=== PATIENT | female | born 1970 | race Caucasian/White ===

== ENCOUNTER 2024-08-18 08:19 | Inpatient (IN) | payer MEDICAID, SELFPAY ==
[2024-08-18] VITALS (8 sets, daily range): BP systolic 100–118; BP diastolic 52–83; PULSE 70–104; RESP 16–20; TEMP 36.1–39.3; O2SAT 84–100; BMI 22.6
--- NOTE | 2024-08-18 08:46 | XR_ITS ---
Examination: AP chest single view Technique one AP portable semiupright chest single view Comparison 10/31/2018 Indications: Clinical diagnosis aspiration, shortness of breath congestion Findings: Enlarged cardiac contour with prominent vascular congestion Pneumonia right base with small right pleural effusion Ectatic enlarged thoracic aorta Impression: Mild heart failure Right base pneumonia, consider aspiration pneumonia
--- NOTE | 2024-08-18 08:47 | EDRME_ITS ---
Rapid Medical Screening Exam RME Arrival date/time: 08/18/24 08:19 This is a 53-year-old female that lives at a nursing home. Per care provider patient was eating and she had a choking episode. Patient has had aspiration in the past. provider at the nursing home did call primary provider and they did order Zithromax just in case. They did not give the medication yesterday because she was not really wanting to eat. This morning patient had low saturations and they thought it was because her temperature was not warm enough for the oximetry probe. They gave her a warm bath and the oxygenation did not come up so they brought her to the emergency room. Upon arrival patient is febrile with O2 sats in the 84%. Patient has a history of severe mental retardation, dependent edema, low blood pressure seasonal allergies and chronic constipation. I have greeted and performed a focused initial assessment of this patient. Initial appropriate labs ordered at this time. A comprehensive ED assessment and evaluation of the patient and analysis of all test and completion of medical decision making process will be conducted by additional ED provider. Chief Complaint: Weakness Time Seen by Provider: 08/18/24 08:23 Vital signs: Vital Signs Temperature 102.8 F H 08/18/24 08:35 Pulse Rate 104 H 08/18/24 08:35 Respiratory Rate 18 08/18/24 08:35 Blood Pressure 100/66 08/18/24 08:35 Pulse Oximetry (%) 84 L 08/18/24 08:35 Oxygen Delivery Method Room Air 08/18/24 08:35
[2024-08-18 09:46] LABS: Basophils # (Auto) 0.0 Thou/mm3 (0.0-0.2); Basophils % (Auto) 0 % (0-2.5); Eosinophils # (Auto) 0.1 Thou/mm3 (0.0-0.5); Eosinophils % (Auto) 0 % (0-10); Hematocrit 36.9 % (36.0-46.0); Hemoglobin 12.2 g/dL (12.0-16.0); Immature Granulocytes Auto 0.04 Thou/mm3 (0.00-0.00); Lymphocytes # (Auto) 0.4 Thou/mm3 (1.0-4.8); Lymphocytes % (Auto) 3 % (10-50); Mean Corpuscular HGB Conc 33.1 g/dl (31.0-37.0); Mean Corpuscular Hemoglobin 29.6 pg (25.0-35.0); Mean Corpuscular Volume 90 fL (80-100); Monocytes # (Auto) 0.7 Thou/mm3 (0.0-0.8); Monocytes % (Auto) 5 % (0-12); Neutrophils # (Auto) 12.2 Thou/mm3 (1.8-7.7); Neutrophils % (Auto) 91 % (37-80); Nucleated Red Blood Cell # 0.00 Thou/mm3 (0.00-0.00); Nucleated Red Blood Cell % 0 /100 WBC (0); Platelet Count 302 Thou/mm3 (140-440); RDW Standard Deviation 47.8 fL (36.4-46.3); Red Blood Count 4.12 Miln/mm3 (4.00-5.20); White Blood Count 13.4 Thou/mm3 (3.6-11.0)
[2024-08-18 09:48] LABS: Lactate (Lactic Acid) 1.9 mMol/L (0.4-2.0)
[2024-08-18] MEDS: ACETAMINOPHEN SUPP 650 MG SUPP PR (10:19)
[2024-08-18 10:24] LABS: Alanine Aminotransferase 10 U/L (10-49); Albumin, Serum 4.2 gm/dL (3.5-5.0); Albumin/Globulin Ratio 1.6 (1.2-2.2); Alkaline Phosphatase 80 U/L (46-116); Anion Gap 11 (7-16); Aspartate Amino Transferase 16 U/L (0-34); BUN/Creatinine Ratio 19 Ratio (12-20); Bilirubin,Total 0.9 mg/dL (0.3-1.2); Blood Urea Nitrogen 25 mg/dL (9-23); Calcium 9.6 mg/dL (8.3-10.6); Calcium (Corrected) 9.6 mg/dL (8.5-10.1); Carbon Dioxide 27.3 mMol/L (20.0-31.0); Chloride 103 mMol/L (98-107); Creatinine (Component) 1.3 mg/dL (0.6-1.3); Estimated Creatinine Clearance 46.3 mL/min (>60); Globulin 2.7 gm/dL (2.3-3.5); Glucose 109 mg/dL (74-106); Osmolality,Calculated 286 (275-295); Potassium 3.7 mMol/L (3.4-5.1); Procalcitonin 0.73 ng/ml (0.0-0.49); Sodium 141 mMol/L (136-145); Total Protein 6.9 gm/dL (5.7-8.2); eGFR 49 See Note
[2024-08-18] MEDS: PIPER/TAZO 3.375 GM PREMIX 3.375 GM/50 ML BAG IV (11:28)
[2024-08-18] MEDS: SODIUM CHLORIDE 0.9% 500 ML 500 ML 999 ML IV (11:28)
[2024-08-18] MEDS: DOXYCYCLINE INJ 100 MG in SODIUM CHLORIDE 0.9% (POP) 100 ML IV (11:29)
--- NOTE | 2024-08-18 12:04 | EDNOTE_ITS ---
ED SOB =RME/HPI General Chief Complaint: Weakness Stated Complaint: SpO2 81%, lethargic Time Seen by Provider: 08/18/24 08:23 Arrival date/time: 08/18/24 08:19 Limitations: language barrier (nonverbal, baseline) RME / HPI RME / HPI Narrative: 08/18/24 08:19 This is a 53-year-old female that lives at a custodial. Per care provider patient was eating and she had a choking episode. Patient has had aspiration in the past. provider at the custodial did call primary provider and they did order Zithromax just in case. They did not give the medication yesterday because she was not really wanting to eat. This morning patient had low saturations and they thought it was because her temperature was not warm enough for the oximetry probe. They gave her a warm bath and the oxygenation did not come up so they brought her to the emergency room. Upon arrival patient is febrile with O2 sats in the 84%. Patient has a history of severe mental retardation, dependent edema, low blood pressure seasonal allergies and chronic constipation. I have greeted and performed a focused initial assessment of this patient. Initial appropriate labs ordered at this time. A comprehensive ED assessment and evaluation of the patient and analysis of all test and completion of medical decision making process will be conducted by additional ED provider. DR. RODNEY MAIN ED EVALUATION: 53 year old female with past medical history significant for developmental delay, intellectual disability, and nonverbal at baseline presents to the Emergency Department brought in by agile tester with complaints of hypoxia/ shortness of breath and generalized weakness. No history from patient. Mariza Espinal, agile tester, states that the patient's O2 sat this morning was 81%. Patient was on a Z pack by her PCP yesterday. Patient has been lethargic/ generally weak and will not eat and will not take her medication. No further complaints at this time. Related Data Home Medications ?Medication ?Instructions ?Recorded ?Confirmed docusate sodium 250 mg capsule 250 mg PO BID PRN CONST IPATION #0 03/19/15 10/29/18 (DOK) caps lactulose 20 gram/30 mL oral 20 gm PO BID ##0 03/19/15 10/29/18 solution loratadine 10 mg tablet (Claritin) 10 mg PO QDAY #0 ta bs 03/19/15 10/29/18 acetaminophen 325 mg tablet 650 mg PO Q4H PRN Pain 09/0110/29/18 (Tylenol) bisacodyl 10 mg rectal suppository 10 mg NM QDAY PRN C onstipation 03/24/17 10/29/18 magnesium hydroxide 400 mg/5 mL 30 ml PO DAILY constip ation 03/24/17 10/29/18 oral suspension (Milk of Magnesia) ferrous sulfate 325 mg (65 mg 325 mg PO DAILY 03/30/17 10/29/18 iron) tablet,delayed release midodrine 5 mg tablet 10 mg PO BID 10/29/18 vit no.95-ferrous 1 tab PO QDAY 10/29/1810/16 fumarate 28 mg-folic acid 800 mcg tablet () Previous Rx's ?Medication ?Instructions ?Recorded amoxicillin 875 mg-potassium 1 tab PO Q12H #14 tabs clavulanate 125 mg tablet (Augmentin) Allergies Allergy/AdvReac Type Severity Reaction Status Date / Time No Known Allergies Allergy Verified 08/18/24 08:25 Review of Systems Review of Systems Systems Reviewed: All systems reviewed, normal except as documented Past Medical History Past Medical History NEUROLOGIC: Positive Neurological Disorders and Patel's Palsy; Negative Seizures or Epilepsy CARDIAC: Positive Congestive Heart Failure and Hypotension; Negative Cardiac Disorders RESPIRATORY: Positive Asthma, Bronchitis, Pneumonia, Cough and Sputum Production; Negative Chronic Obstructive Pulmonary Disease (COPD) GASTROINTESTINAL: Positive Gastrointestinal Disorders GENITOURINARY: Positive Genitourinary Disorders; Negative Renal Disease or Dialysis MUSCULOSKELETAL: Positive Musculoskeletal Disorders ENDOCRINE: Negative Diabetes Mellitus Type 1 or Diabetes Mellitus Type 2 HEMATOLOGIC: Positive Anemia; Negative Sickle Cell Disease Social History SMOKING STATUS: Never smoker SECOND HAND EXPOSURE: No SUBSTANCE USE: does not use ALCOHOL: Never ED Exam General Limitations: Present language barrier (nonverbal, baseline) General appearance: Present alert (at her baseline) and in no apparent distress Head Head exam: Present atraumatic, normocephalic and normal inspection Eye Eye exam: Present normal appearance, PERRL and EOMI ENT ENT exam: Present normal exam, normal oropharynx and mucous membranes moist Neck Neck exam: Present normal inspection, full ROM and trachea midline Chest Chest inspection: Present normal inspection and symmetric chest wall rise Respiratory Respiratory exam: Present normal lung sounds bilaterally Cardiovascular Cardiovascular exam: Present regular rate, normal rhythm and normal heart sounds Abdominal Exam Abdominal exam: Present soft and normal bowel sounds Extremities Exam Extremities exam: Present full ROM and other (all contracted, mildly) Expanded Lower Extremity Exam Foot/toe exam: Present swelling (left foot edema, chronic) Back Exam Back exam: Present normal inspection and full ROM Neurological Exam Neurological exam: Present alert (at baseline) Psychiatric Psychiatric exam: Present normal affect and normal mood Skin Skin exam: Present warm, dry, intact and normal color Course Quality Measures none Orders Category Date Time Status COVID-19 Screening Questionnaire NOW Care 08/18/24 12:37 Active Decision to Admit X1 Care 08/18/24 12:37 Active Insert [Insert IV] NOW Care 08/18/24 09:54 Active XR chest 1V Stat Exams 08/18/24 08:46 Completed Blood Culture (Lab) Stat Lab 08/18/24 09:37 Received CBC Stat Lab 08/18/24 09:37 Completed Comprehensive Metabolic Panel Stat Lab 08/18/24 09:37 Completed Lactate (Lactic Acid) Stat Lab 08/18/24 09:37 Completed Procalcitonin Stat Lab 08/18/24 09:37 Completed Urinalysis, C/S if Indicated Stat Lab 08/18/24 08:46 Ordered ALBUTEROL RT 3ml [Proventil Rt 3ml] Med 08/18/24 09:54 Discontinued 5 mg INH X1 ONE Acetaminophen Supp [Tylenol Supp] Med 08/18/24 08:50 Discontinued 650 mg NM X1 ONE Doxycycline Inj [Vibramycin Inj] 100 mg Med 08/18/24 09:54 Discontinued Sodium Chloride 0.9% (Pop) [NS 0.9% mini bag] 100 ml IV X1 Piper/Tazo 3.375 gm Premix [Zosyn] Med 08/18/24 09:55 Discontinued 3.375 gm in 50 ml IV X1 Sodium Chloride 0.9% 500 ml [Ns] 500 ml Med 08/18/24 09:54 Discontinued IV 999 mls/hr Vital Signs Vital signs: Vital Signs Temperature 102.8 F H 08/18/24 08:35 Pulse Rate 104 H 08/18/24 08:35 Respiratory Rate 18 08/18/24 08:35 Blood Pressure 100/66 08/18/24 08:35 Pulse Oximetry (%) 84 L 08/18/24 08:35 Oxygen Delivery Method Room Air 08/18/24 08:35 Shortness of Breath / Dyspnea MDM Narrative MDM Narrative:: I, Cheryle Shah, eder scribing for and in the presence of Dr. Rodney. Patient data External records reviewed:: [facility] previous records Clinical information provided by:: agile tester Social determinants that could affect healthcare access:: none Patient has the following chronic illnesses:: developmental delay, intellectual disability, and nonverbal at baseline How is presenting disease/condition affected by chronic disease/condition?: uneffected by Evaluation data The following diagnostics were reviewed and interpreted by me:: lab results and radiology exam(s) Lab and/or radiology exams considered but not ordered:: none Interpretation Summary: Procedure(s): XR chest 1V Accession Number(s): [id number] cc: Carlo Glass MD; Apurva Sy NP~ Examination: AP chest single view Technique one AP portable semiupright chest single view Comparison 10/31/2018 Indications: Clinical diagnosis aspiration, shortness of breath congestion Findings: Enlarged cardiac contour with prominent vascular congestion Pneumonia right base with small right pleural effusion Ectatic enlarged thoracic aorta Impression: Mild heart failure Right base pneumonia, consider aspiration pneumonia Dictated By: Carlo Glass MD Medications / Prescriptions Medications or Prescriptions considered but not ordered:: none Medication administrations:: Medication Administration History Discontinued Medications Acetaminophen (Acetaminophen Supp 650 Mg Supp) 650 mg NM X1 ONE Stop: 08/18/24 08:51 Last Admin: 08/18/24 10:19 Dose: 650 mg Documented By: FARIDEH Albuterol (Albuterol Rt 2.5 Mg/3 Ml Nebu) 5 mg INH X1 ONE Stop: 08/18/24 09:55 Last Admin: 08/18/24 12:10 Dose: 5 mg Documented By: HARPER Sodium Chloride (Ns) 500 mls @ 999 mls/hr IV .Q31M ONE Stop: 08/18/24 10:24 Last Infusion: 08/18/24 12:04 Dose: Infused Documented By: Admin: 08/18/24 11:28 Dose: 999 mls/hr Documented By: FARIDEH Piperacillin/Tazobactam/Dextrose (Zosyn) 3.375 gm in 50 mls @ 100 mls/hr IV X1 ONE Stop: 08/18/24 10:24 Last Infusion: 08/18/24 12:03 Dose: Infused Documented By: Admin: 08/18/24 11:28 Dose: 100 mls/hr Documented By: FARIDEH Doxycycline Hyclate 100 mg/ (Sodium Chloride) 100 mls @ 100 mls/hr IV X1 ONE Stop: 08/18/24 10:53 Last Admin: 08/18/24 11:29 Dose: 100 mls/hr Documented By: FARIDEH see above Consultations Consultation(s) initiated? (list below): Yes Consultation #1 (Physician, Specialty, Details): Discussed test HPI, PMHx, lab, radiology results and/or management with resident working with the hospitalist. Will admit for further evaluation and management. Accepts patient for admission. Time: 12:41 Diagnosis Shortness of Breath Differential Diagnosis: acute exacerbation of chronic obstructive airways disease, congestive heart failure, community acquired pne umonia and pulmonary embolism Most likely diagnosis given after review of the tests above:: Right base pneumonia Admission Indicated Admission indicated?: indicated Admission Request Was there a request for admission?: Yes Admission Attestation Admission request attestation: Discussed case with [] from Hospitalist service regarding admission. Discussed patients ED course, exam findings, labs, and radiology results. The Hospitalist [agrees,declines] to accept the patient for admission. Disposition Plan Disposition Plan: Admit Discharge Plan Plan Patient Disposition: Admit Acute Care w/in Hospital Prescriptions/Referrals Prescriptions/Med Rec: No Action docusate sodium [DOK] 250 MG capsule 250 mg PO BID PRN (Reason: CONSTIPATION) Qty: 0 loratadine [Claritin] 10 MG tablet 10 mg PO QDAY Qty: 0 lactulose 20 GM/30 ML syrup 20 gm PO BID Qty: 0 acetaminophen [Tylenol] 325 mg Tablet 650 mg PO Q4H PRN (Reason: Pain) magnesium hydroxide [Milk of Magnesia] 400 mg/5 mL suspension 30 ml PO DAILY Patient Comments: bisacodyl 10 mg Suppository 10 mg NM QDAY PRN (Reason: Constipation) ferrous sulfate 325 mg (65 mg iron) Tablet,Delayed Release (Dr/Ec) 325 mg PO DAILY PNV cmb#95-ferrous fumarate-FA [] 28 mg iron- 800 mcg Tablet 1 tab PO QDAY midodrine 5 mg tablet 10 mg PO BID amoxicillin-pot clavulanate [Augmentin] 875-125 mg tablet 1 tab PO Q12H Qty: 14 0RF Referrals: Gabriel Castillo MD [Primary Care Provider] - In 1 week Problem List Clinical Impression: Pneumonia Patient/Caregiver Discharge Instructions Print Language: Khmer Stand Alone Forms: [facility]i Award Info., Patient Portal Info Letter
[2024-08-18] MEDS: ALBUTEROL RT 2.5 MG/3 ML NEBU 5 MG INH (12:10)
--- NOTE | 2024-08-18 13:23 | ESHP_ITS ---
<Statement entered by Shahid Hein MD - 08/24/24 14:55> I reviewed above note and agree with findings and plans. I have also personally examined the patient with medicine team and went over assessment and plan with medical team including international tax manager and resident physician. Documentation for date of: 08/18/24 HPI History of Present Illness History of present illness: Patient is a 53 year old female with past medical history of developmental delay, intellectual disability, nonverbal at baseline, CHF, hypertension who presents to the ED on 08/18/2024 from custodial for hypoxia and generalized weakness. According to caregiver Vaishali Espinal, patient has not been eating for the past 24 hours last meal was lunch yesterday. Patient has been weak for the past day. This morning, patient was saturating 81% on room air since yesterday. Caregiver took patient to her PCP Dr. Castillo who prescribed her a Z-pack. However, patient was not given Zpack as she did not want to consume anything. Last bowel movement was 1 to 2 days ago. Patient has puree diet at custodial. ED Course: -Initial vitals were BP 100/66 heart rate 104 temperature 102 Fahrenheit saturating 84% on room air. Started on 4 L oxygen nasal cannula. -Labs significant for WBC 13,000 BUN 25 creatinine 1.3, Pro-Deacon 0.73, lactic 1.9, GFR 49. UA shows positive leukocyte esterase, negative for nitrate, urine WBC 14, RBC 12. -Imaging included CXR showed right base pneumonia, likely aspiration pneumonia. -In the ED, patient was given IVF, IV Zosyn and doxycycline in the ED. -Patient was admitted for acute hypoxic respiratory failure likely secondary to aspiration pneumonia versus CAP Review of systems was unable to be obtained as patient is nonverbal at baseline and has intellectual disability. Past Medical History: CHF, hypotension, constipation, asthma, anemia Family History: Unknown Surgical History: None Social History: From custodial. Does not use oxygen. Puree Diet. Denies history of smoking, denies current alcohol use, denies recreational drug use Current Medications: Lasix 20 mg daily, metoclopramide 10 mg twice daily, MiraLAX 13 g twice daily with water, Tylenol 650 mg as needed, coccidial 5 mg 2 tabs as needed, ferrous sulfate 325 mg daily, midodrine 10 mg BID, vitamin (Source: caregiver Vaishali) Allergies: No known drug allergies Review of Systems Review of Systems Narrative Review of Systems: Review of Systems General: Denies fevers or chills HEENT: Denies congestion or sore throat Heart: Denies chest pain or palpitations Lungs: Denies shortness of breath or cough Abdomen: Denies diarrhea, nausea, vomiting, constipation, bright red blood per rectum or melena Genitourinary: Denies frequency, urgency, dysuria, or hematuria Musculoskeletal: Denies joint pain or myalgias Neurology: Denies any changes in vision, weakness or difficulty speaking Review of systems otherwise negative except what is mentioned above. Exam Vital Signs Temp Pulse Resp BP Pulse Ox O2 Del Method O2 Flow Rate 102.8 F H 85 16 100/66 93 L Room Air 4 08/18/24 10:19 08/18/24 12:11 08/18/24 12:11 08/18/24 08:35 08/18/24 12:11 08/18/24 08:35 08/18/24 12:11 Narrative Exam Physical Exam General: Awake. Does not appear to be in acute distress. Lying in bed in position. Nonverbal, non-toxic appearing. ON 4L NC but gripping cannula, saturating 92% on RA. HEENT: Normocephalic, atraumatic, mucous membranes moist. Drooling. Heart: Regular rate and rhythm, normal S1 and S2, no murmurs appreciated. Lungs: Rhochi in upper lobes. Decreased lung sounds in right lower lobe. Abdomen: Soft, nondistended, nontender, positive bowel sounds. No guarding or rebound tenderness. Extremities: Left lower extremity edema. No edema of right leg or hands. Skin: No rash or ecchymoses observed. Results: Labs 08/18/24 09:37 08/18/24 09:37 Labs: Short CBC 08/18/24 Range/Units 09:37 WBC 13.4 H (3.6-11.0) Thou/mm3 Hgb 12.2 (12.0-16.0) g/dL Hct 36.9 (36.0-46.0) % Plt Count 302 (140-440) Thou/mm3 BMP 08/18/24 09:37 Sodium 141 Potassium 3.7 Chloride 103 Carbon Dioxide 27.3 BUN 25 H Creatinine 1.3 Glucose 109 H Calcium 9.6 Liver Function 08/18/24 Range/Units 09:37 Total Bilirubin 0.9 (0.3-1.2) mg/dL AST 16 (0-34) U/L ALT 10 (10-49) U/L Alkaline Phosphatase 80 (46-116) U/L Albumin 4.2 (3.5-5.0) gm/dL Quality Measures Quality Measures none Medications Home Medications and Allergies Home Medications ?Medication ?Instructions ?Recorded ?Confirmed ?Type docusate sodium 250 mg capsule 250 mg PO BID PRN CONST IPATION #0 03/19/15 08/18/24 History (DOK) caps lactulose 20 gram/30 mL oral 20 gm PO BID ##0 03/19/15 08/18/24 History solution loratadine 10 mg tablet (Claritin) 10 mg PO QDAY #0 ta bs 03/19/15 08/18/24 History acetaminophen 325 mg tablet 650 mg PO Q4H PRN Pain 09/0108/18/24 History (Tylenol) bisacodyl 10 mg rectal suppository 10 mg DC QDAY PRN C onstipation 03/24/17 08/18/24 History magnesium hydroxide 400 mg/5 mL 30 ml PO DAILY constip ation 03/24/17 08/18/24 History oral suspension (Milk of Magnesia) ferrous sulfate 325 mg (65 mg 325 mg PO DAILY 03/30/17 08/18/24 History iron) tablet,delayed release midodrine 5 mg tablet 10 mg PO BID 10/29/18 History vit no.95-ferrous 1 tab PO QDAY 10/29/1806/09 History fumarate 28 mg-folic acid 800 mcg tablet () metoclopramide HCl 10 mg tablet 10 mg PO 2XD 08/18/24 08/18/24 History midodrine 10 mg tablet 10 mg PO BID 08/18/24 History Allergies Allergy/AdvReac Type Severity Reaction Status Date / Time No Known Allergies Allergy Verified 08/18/24 08:25 Visit Medications Discontinued Medications Acetaminophen (Acetaminophen Supp 650 Mg Supp) 650 mg DC X1 ONE Stop: 08/18/24 08:51 Last Admin: 08/18/24 10:19 Dose: 650 mg Albuterol (Albuterol Rt 2.5 Mg/3 Ml Nebu) 5 mg INH X1 ONE Stop: 08/18/24 09:55 Last Admin: 08/18/24 12:10 Dose: 5 mg Sodium Chloride (Ns) 500 mls @ 999 mls/hr IV .Q31M ONE Stop: 08/18/24 10:24 Last Infusion: 08/18/24 12:04 Dose: Infused Piperacillin/Tazobactam/Dextrose (Zosyn) 3.375 gm in 50 mls @ 100 mls/hr IV X1 ONE Stop: 08/18/24 10:24 Last Infusion: 08/18/24 12:03 Dose: Infused Doxycycline Hyclate 100 mg/ (Sodium Chloride) 100 mls @ 100 mls/hr IV X1 ONE Stop: 08/18/24 10:53 Last Admin: 08/18/24 11:29 Dose: 100 mls/hr Assessment & Plan Plan Patient is a 53 year old female with past medical history of developmental delay, intellectual disability, nonverbal at baseline, CHF, hypertension who presents to the ED on 08/18/2024 for hypoxia and generalized weakness. Patient was admitted for acute hypoxic respiratory failure secondary to aspiration pneumonia versus community-acquired pneumonia, also found to have JACOBO on CKD. #Acute hypoxic respiratory failure secondary to aspiration pneumonia versus community-acquired pneumonia #History of aspiration pneumonia #Leukocytosis SIRS 3/4. Patient has history of aspiration pneumonia, was previously admitted in October 2018 for same reason. On admission, WBC 13,000. Chest x-ray shows right basilar pneumonia. ? Treat with Unasyn 1.5 g IV every 6 hour and doxycycline for 7 days ? Monitor CBC, trend WBC ? Pending influenza A and COVID results #History of CHF Per caregiver, patient follows PCP Dr. Castillo for management of CHF. Patient has left lower extremity edema at baseline; however patient can develop right lower extremity swelling if not on diuretic. Should rule out concern for DVT in case. -Consider echo -US lower extremities bilaterally ordered, pending results -Restart home Lasix #Concern for sepsis 2/2 JACOBO on CKD and aspiration PNA On admission, creatinine 1.3 (baseline 0.9), Bun 25, GFR 49. Likely secondary to acute hypoxic respiratory failure versus concern for sepsis given elevated WBC, fever, and HR 104 on admission, likely secondary to JACOBO and aspiration pneumonia (creatinine increases by at least 0.3). -CrCl >38, do not need to really dose unasyn -Monitor renal panel #History of constipation Last bowel movement was 1-2 days ago per caregiver. On CXR, noticed dilated bowels. Abdominal XR today showed very large amounts of stool throughout colon, especially in redundant sigmoid colon and rectum. No free air. No renal or ureteral calculi. Moderate right hip osteoarthritis. Required Miralax everyday at custodial. -Senna daily Health Maintenance Disposition: Telemetry DVT prophylaxis: heparin GI prophylaxis: zofran for nausea/vomiting Diet: NPO, pending swallow study CODE STATUS: Full code Patient plan of care was discussed with the attending physician, Dr. Melvina Cabrera, PGY-1
[2024-08-18 14:12] LABS: Collection Type, Urine Pedi-Bag; Squamous Epithelial Cell,Urine 0 /hpf (0-5)
[2024-08-18 14:36] LABS: Bilirubin,Urine Negative (Negative); Blood,Urine Trace (Negative); Clarity,Urine Turbid (Clear/Hazy); Color,Urine Yellow (Lt Yel-Yel); Glucose, Urine Negative (Negative); Ketones,Urine Negative (Negative); Leukocyte Esterase,Urine Positive (Negative); Nitrite,Urine Negative (Negative); PH,Urine 5.5 (5.0-7.0); Protein,Urine Trace (Neg - Trace); RBC,Urine 12 /hpf (0-3); Specific Gravity,Urine 1.028 (1.001-1.035); Urobilinogen,Urine Negative mg/dL (0.0-1.0); WBC,Urine 14 /hpf (0-5)
[2024-08-18 14:37] LABS: Culture Indicated,Urine Yes
--- NOTE | 2024-08-18 14:48 | XR_ITS ---
Examination: Abdomen AP single view Technique: AP portable supine abdomen, single view Exam date and time: August 18, 2024, 1535 hours INDICATIONS: Clinical diagnosis urinary retention FINDINGS: Large amounts of stool throughout the colon especially in redundant sigmoid colon and rectum No free air No renal or ureteral calculi Moderate right hip osteoarthritis IMPRESSION: Very large amounts of stool throughout the colon especially in redundant sigmoid colon and rectum
--- NOTE | 2024-08-18 15:18 | XR_ITS ---
Examination: Venous duplex lower extremity sonogram, bilateral. Date and time of exam: August 18, 2024 1546 hours INDICATIONS: Bilateral leg swelling onset today Technique: Multiple sonographic images of the deep venous system have been obtained. B-mode/2-D grayscale imaging of vascular structures and Doppler spectral analysis (waveforms) and color performed Both legs are examined. Findings: Deep venous systems do not demonstrate abnormal echogenicity. All visualized deep veins exhibit compressibility. All visualized deep veins exhibit augmentation. Impression: Negative for deep vein thrombosis
[2024-08-18 15:54] LABS: B-Type Natriuretic Peptide < 20 pg/mL (0-100)
[2024-08-18] MEDS: FUROSEMIDE INJ 10 MG/ML 4ML VIAL 40 MG IVP (16:21)
[2024-08-18] MEDS: HEPARIN SOD INJ 5000 UNIT/ML VIAL SC (20:45)
[2024-08-19] VITALS (7 sets, daily range): BP systolic 92–110; BP diastolic 54–81; PULSE 71–84; RESP 16–88; TEMP 36–36.3; O2SAT 93–97
--- NOTE | 2024-08-19 01:29 | PC.NURSE ---
attempted to do FLU, MRSA, and RSV swab, pt refusing placing hands in front of face. Unable to get specimen at this time.
[2024-08-19 06:04] LABS: Basophils # (Auto) 0.1 Thou/mm3 (0.0-0.2); Basophils % (Auto) 0 % (0-2.5); Eosinophils # (Auto) 0.0 Thou/mm3 (0.0-0.5); Eosinophils % (Auto) 0 % (0-10); Hematocrit 35.8 % (36.0-46.0); Hemoglobin 11.8 g/dL (12.0-16.0); Immature Granulocytes Auto 0.05 Thou/mm3 (0.00-0.00); Lymphocytes # (Auto) 0.8 Thou/mm3 (1.0-4.8); Lymphocytes % (Auto) 7 % (10-50); Mean Corpuscular HGB Conc 33.0 g/dl (31.0-37.0); Mean Corpuscular Hemoglobin 30.3 pg (25.0-35.0); Mean Corpuscular Volume 92 fL (80-100); Monocytes # (Auto) 0.4 Thou/mm3 (0.0-0.8); Monocytes % (Auto) 3 % (0-12); Neutrophils # (Auto) 10.3 Thou/mm3 (1.8-7.7); Neutrophils % (Auto) 89 % (37-80); Nucleated Red Blood Cell # 0.00 Thou/mm3 (0.00-0.00); Nucleated Red Blood Cell % 0 /100 WBC (0); Platelet Count 307 Thou/mm3 (140-440); RDW Standard Deviation 49.0 fL (36.4-46.3); Red Blood Count 3.89 Miln/mm3 (4.00-5.20); White Blood Count 11.7 Thou/mm3 (3.6-11.0)
[2024-08-19 06:55] LABS: Alanine Aminotransferase 10 U/L (10-49); Albumin, Serum 4.0 gm/dL (3.5-5.0); Albumin/Globulin Ratio 1.5 (1.2-2.2); Alkaline Phosphatase 77 U/L (46-116); Anion Gap 14 (7-16); Aspartate Amino Transferase 19 U/L (0-34); BUN/Creatinine Ratio 23 Ratio (12-20); Bilirubin,Total 0.6 mg/dL (0.3-1.2); Blood Urea Nitrogen 27 mg/dL (9-23); Calcium 9.4 mg/dL (8.3-10.6); Calcium (Corrected) 9.4 mg/dL (8.5-10.1); Carbon Dioxide 28.8 mMol/L (20.0-31.0); Cardiac Risk Estimate 2.1 RATIO (3.7-5.6); Chloride 103 mMol/L (98-107); Cholesterol 154 mg/dL (132-200); Creatinine (Component) 1.2 mg/dL (0.6-1.3); Estimated Creatinine Clearance 50.2 mL/min (>60); Globulin 2.7 gm/dL (2.3-3.5); Glucose 88 mg/dL (74-106); HDL Cholesterol 75 mg/dL (40-60); LDL Cholesterol,Calculated 66 mg/dL (0-130); Magnesium 2.2 mg/dL (1.6-2.6); Osmolality,Calculated 294 (275-295); Phosphorous 3.6 mg/dL (2.4-5.1); Potassium 3.7 mMol/L (3.4-5.1); Sodium 146 mMol/L (136-145); Thyroid Stimulating Hormone 1.80 uIU/mL (0.55-4.78); Total Protein 6.7 gm/dL (5.7-8.2); Triglycerides 63 mg/dL (30-150); eGFR 54 See Note
[2024-08-19 07:10] LABS: Influenza A Ag Negative; Influenza B Ag Negative; Respiratory Syncytial Virus Ag Negative (Negative)
[2024-08-19] MEDS: HEPARIN SOD INJ 5000 UNIT/ML VIAL SC (08:42)
[2024-08-19] MEDS: AMPICILLIN/SULBAC INJ 1.5 GM in SODIUM CHLORIDE 0.9% (Popper) 50 ML IV (08:42)
[2024-08-19] MEDS: DOXYCYCLINE INJ 100 MG in SODIUM CHLORIDE 0.9% (POP) 100 ML IV (08:43)
[2024-08-19] MEDS: LACTULOSE SYRUP 20 GM/30 ML UDC 60 GM PO (10:44)
--- NOTE | 2024-08-19 12:39 | PD.RESPRO ---
Documentation for date of: 08/19/24 Exam Vital Signs Temp Pulse Resp BP Pulse Ox O2 Del Method O2 Flow Rate 97.4 F 84 20 110/74 95 Room Air 2 08/19/24 08:00 08/19/24 08:41 08/19/24 08:00 08/19/24 08:41 08/19/24 08:00 08/19/24 08:00 08/19/24 04:00 Objective Labs 08/19/24 05:00 08/19/24 05:00 Labs: Laboratory Results - last 24 hr 08/18/24 08/18/24 08/19/24 09:37 13:59 04:08 WBC RBC Hgb Hct MCV MCH MCHC RDW Std Deviation Plt Count Neut % (Auto) Lymph % (Auto) [place] % (Auto) Eos % (Auto) Baso % (Auto) Neut # (Auto) Lymph # (Auto) [place] # (Auto) Eos # (Auto) Baso # (Auto) Immature Gran # (Auto) Absolute Nucleated RBC Immature Gran % Nucleated RBC % Sodium Potassium Chloride Carbon Dioxide Anion Gap BUN Creatinine Estim Creat Clear Calc eGFR BUN/Creatinine Ratio Glucose Calculated Osmolality Calcium Corrected Calcium Phosphorus Magnesium Total Bilirubin AST ALT Alkaline Phosphatase B-Natriuretic Peptide < 20 Total Protein Albumin Globulin Albumin/Globulin Ratio Triglycerides Cholesterol LDL Cholesterol, Calc HDL Cholesterol Cholesterol/HDL Ratio TSH Ur Collection Type Pedi-Bag Urine Color Yellow Urine Clarity Turbid A Urine pH 5.5 Ur Specific [place] 1.028 Urine Protein Trace Urine Glucose (UA) Negative Urine Ketones Negative Urine Blood Trace Urine Nitrite Negative Urine Bilirubin Negative Urine Urobilinogen (Auto) Negative Ur Leukocyte Esterase Positive Urine RBC 12 H Urine WBC 14 H Ur Squamous Epith Cells 0 Urine Bacteria None Ur Culture Indicated? Yes Influenza A (Rapid) Negative Influenza B (Rapid) Negative RSV Rapid Negative 08/19/24 05:00 WBC 11.7 H RBC 3.89 L Hgb 11.8 L Hct 35.8 L MCV 92 MCH 30.3 MCHC 33.0 RDW Std Deviation 49.0 H Plt Count 307 Neut % (Auto) 89 H Lymph % (Auto) 7 L [place] % (Auto) 3 Eos % (Auto) 0 Baso % (Auto) 0 Neut # (Auto) 10.3 H Lymph # (Auto) 0.8 L [place] # (Auto) 0.4 Eos # (Auto) 0.0 Baso # (Auto) 0.1 Immature Gran # (Auto) 0.05 H Absolute Nucleated RBC 0.00 Immature Gran % 0 Nucleated RBC % 0 Sodium 146 H Potassium 3.7 Chloride 103 Carbon Dioxide 28.8 Anion Gap 14 BUN 27 H Creatinine 1.2 Estim Creat Clear Calc 50.2 L eGFR 54 L BUN/Creatinine Ratio 23 H Glucose 88 Calculated Osmolality 294 Calcium 9.4 Corrected Calcium 9.4 Phosphorus 3.6 Magnesium 2.2 Total Bilirubin 0.6 AST 19 ALT 10 Alkaline Phosphatase 77 B-Natriuretic Peptide Total Protein 6.7 Albumin 4.0 Globulin 2.7 Albumin/Globulin Ratio 1.5 Triglycerides 63 Cholesterol 154 LDL Cholesterol, Calc 66 HDL Cholesterol 75 H Cholesterol/HDL Ratio 2.1 L TSH 1.80 Ur Collection Type Urine Color Urine Clarity Urine pH Ur Specific [place] Urine Protein Urine Glucose (UA) Urine Ketones Urine Blood Urine Nitrite Urine Bilirubin Urine Urobilinogen (Auto) Ur Leukocyte Esterase Urine RBC Urine WBC Ur Squamous Epith Cells Urine Bacteria Ur Culture Indicated? Influenza A (Rapid) Influenza B (Rapid) RSV Rapid Quality Measures Quality Measures none Assessment & Plan Assessment Current Active Medications: Generic Name Dose Route Start Last Admin Trade Name Freq PRN Reason Stop Dose Admin Acetaminophen 650 mg 08/18/24 15:12 Acetaminophen 325 Mg Tablet PO 09/17/24 15:11 Q6H PRN mild pain 1-3 or Fever >100.3 Benzonatate 100 mg 08/18/24 15:28 Benzonatate 100 Mg Capsule PO 09/17/24 15:27 Q8HR PRN COUGH Protocol Furosemide 20 mg 08/19/24 09:00 08/19/24 08:41 Furosemide 20 Mg Tablet PO 09/18/24 08:59 20 mg QAM LEIGH Administration Heparin Sodium (Porcine) 5,000 unit 08/18/24 21:00 08/19/24 08:42 Heparin Sod Inj 5000 Unit/Ml Vial SC 09/01/24 20:59 5,000 unit BID LEIGH Administration Ampicillin Sodium/Sulbactam 50 mls @ 100 mls/hr 08/19/24 09:00 08/19/24 11:08 Sodium 1.5 gm/ Sodium Chloride IV 08/26/24 08:59 Not Given Q6HR LEGIH Doxycycline Hyclate 100 mg/ 100 mls @ 100 mls/hr 08/19/24 09:00 08/19/24 08:43 Sodium Chloride IV 08/26/24 08:59 100 mls/hr BID LEIGH Administration Ondansetron HCl 4 mg 08/18/24 15:12 Ondansetron Inj 2 Mg/Ml Inj 2 Ml IVP 09/17/24 15:11 Q6H PRN NAUSEA OR VOMITING Protocol Sennosides 1 tab 08/18/24 15:15 08/19/24 08:42 Senna Tablet PO 09/17/24 15:14 1 tab QDAY LEIGH Administration Protocol
--- NOTE | 2024-08-19 14:47 | ESDS_ITS ---
<Statement entered by Shahid Hein MD - 08/26/24 11:43> I reviewed above note and agree with findings and plans. I have also personally examined the patient with medicine team and went over assessment and plan with medical team including automotive internet sales consultant and resident physician. Planned Discharge Date 08/19/24 DS: Providers Provider Date of admission: 08/18/24 15:05 Primary care physician: Gabriel Castillo MD Admitting Provider: Shahid Hein MD Attending Provider on Admission: Shahid Hein MD Consults: 08/19/24 07:35 Referral Speech Therapy Routine Comment: Referral Speech Therapy Stat Comment: Attending Provider on DC: RESIDENT Jaskaran Discharging Provider: RESIDENT Jaskaran DS: Diagnosis Problem List Completed Was Problem List Reviewed/Reconciled?: Yes Hospital Course Hospital Course Hospital course: Summary: Patient is a 53 year old female with past medical history of developmental delay, intellectual disability, nonverbal at baseline, CHF, hypertension, and history of aspiration pneumonia, was admitted on 08/18/2024 for hypoxia and generalized weakness. X-ray showed right basilar pneumonia. Patient was treated with antibiotics before getting discharged. Hospital Course: Patient was treated with Unasyn 1.5 g IV q6h and doxycycline. Blood culture was negative at 24hrs. Influenze A and COVID was negative. Patient had stable vitals and was saturating on room air. It was, therefore, decided to treat the patient in outpatient setting with Amoxicillin-pot Clavulanate 875-125 mg PO BID. Diagnosis: #Acute hypoxic respiratory failure secondary to aspiration pneumonia versus community-acquired pneumonia #History of aspiration pneumonia #Leukocytosis #History of CHF #Concern for sepsis 2/2 JACOBO on CKD and aspiration PNA #History of constipation Instructions: Continue antibiotics for 5 more days for treatment of pneumonia. Follow up with Primary care physician with labs within 3-5 days of discharge. If symptoms persist or worsen, return to the Emergency Department. Safe to discharge to [facility]. -pot Clavulanate 875-125 mg PO BID. Diagnosis: #Acute hypoxic respiratory failure secondary to aspiration pneumonia versus community-acquired pneumonia #History of aspiration pneumonia #Leukocytosis #History of CHF #Concern for sepsis 2/2 JACOBO on CKD and aspiration PNA #History of constipation Instructions: Continue antibiotics for 5 more days for treatment of pneumonia. Follow up with Primary care physician with labs within 3-5 days of discharge. If symptoms persist or worsen, return to the Emergency Department. Safe to discharge to [facility]. Time Spent with Patient Time attestation: Total time spent providing and/or coordinating discharge services:At least 30 minutes of care coordination Time spent: Greater than 30 minutes Exam Vital Signs Temp Pulse Resp BP Pulse Ox O2 Del Method O2 Flow Rate 96.8 F 77 18 104/81 95 Room Air 2 08/19/24 12:00 08/19/24 12:00 08/19/24 12:00 08/19/24 12:00 08/19/24 12:00 08/19/24 12:08/19/24 04:00 Narrative Exam General: Awake. Does not appear to be in acute distress. Lying in bed in position. Nonverbal, non-toxic appearing. ON 4L NC but gripping cannula, saturating 92% on RA. HEENT: Normocephalic, atraumatic, mucous membranes moist. Drooling. Heart: Regular rate and rhythm, normal S1 and S2, no murmurs appreciated. Lungs: Rhochi in upper lobes. Decreased lung sounds in right lower lobe. Abdomen: Soft, nondistended, nontender, positive bowel sounds. No guarding or rebound tenderness. Extremities: Left lower extremity edema. No edema of right leg or hands. Skin: No rash or ecchymoses observed. Discharge Plan Plan Patient Disposition: Xfer Skilled [facility] (SNF) Care Plan Goals: Continue antibiotics for 5 more days for treatment of pneumonia. Follow up with Primary care physician with labs within 3-5 days of discharge. If symptoms persist or worsen, return to the Emergency Department. Prescriptions/Referrals Prescriptions/Med Rec: New benzonatate 100 mg Capsule 100 mg PO Q8HR PRN (Reason: Cough) 5 Days Qty: 15 0RF amoxicillin-pot clavulanate 875-125 mg tablet 1 tab PO BID Qty: 10 0RF Continued docusate sodium [DOK] 250 MG capsule 250 mg PO BID PRN (Reason: CONSTIPATION) Qty: 0 loratadine [Claritin] 10 MG tablet 10 mg PO QDAY Qty: 0 lactulose 20 GM/30 ML syrup 20 gm PO BID Qty: 0 acetaminophen [Tylenol] 325 mg Tablet 650 mg PO Q4H PRN (Reason: Pain) magnesium hydroxide [Milk of Magnesia] 400 mg/5 mL suspension 30 ml PO DAILY Patient Comments: bisacodyl 10 mg Suppository 10 mg WA QDAY PRN (Reason: Constipation) ferrous sulfate 325 mg (65 mg iron) Tablet,Delayed Release (Dr/Ec) 325 mg PO DAILY PNV [id number] fumarate-FA [] 28 mg iron- 800 mcg Tablet 1 tab PO QDAY midodrine 5 mg tablet 10 mg PO BID metoclopramide HCl 10 mg tablet 10 mg PO 2XD midodrine 10 mg tablet 10 mg PO BID Referrals: Gabriel Castillo MD [Primary Care Provider] - Patient/Caregiver Discharge Instructions Print Language: Japanese Stand Alone Forms: Mansi Award Info., Patient Portal Info Letter Discharge Order Discharge Orders: Discharge (Routine); Ordered 08/19/24 Ordered By: Mehreen Connolly Quality Discharge Quality Measures VTE prophylaxis
== END 2024-08-19 13:05 | disposition skilled nursing facility (03) | DRG 137 ==
LOC: SERX 12:42 → SERHOLD 16:19 → S3NX 08-19 10:20 → SERHOLD 08-20 18:45
PROVIDERS: Nurse Practitioner Family; Admitting Provider Internal Medicine; Emergency Provider Family Medicine; PCP Family Medicine; Visit Provider Internal Medicine
DX: J69.0 Pneumonitis due to inhalation of food and vomit (principal); J96.01 Acute respiratory failure with hypoxia; I13.0 Hypertensive heart and chronic kidney disease with heart failure and stage 1 through stage 4 chronic kidney disease, or unspecified chronic kidney disease; I50.9 Heart failure, unspecified; N18.9 Chronic kidney disease, unspecified; N17.9 Acute kidney failure, unspecified; F72 Severe intellectual disabilities; M16.11 Unilateral primary osteoarthritis, right hip; Q43.8 Other specified congenital malformations of intestine; Z87.01 Personal history of pneumonia (recurrent)
CPT/HCPCS: 36415; 71045; 74018; 80053; 80061; 81001; 83605; 83735; 83880; 84100; 84145; 84443; 85025; 87040; 87081; 87086; 87502; 87634; 92610; 93225; 93970; 94640; 96365; 96366; 96368; 96375; 99285; J0295; J1644; J1938; J2543; J3490; J7050; J7999; A9270